=== PATIENT | female | born 1945 | race Caucasian/White ===

== ENCOUNTER → 2016-10-16 | Outpatient (CLI) | payer MEDICARE, OTHER | LOC: GMAM 16:53 | PROVIDERS: ATTEND Family Medicine | DX: R53.83 Other fatigue (principal); R30.0 Dysuria ==

== ENCOUNTER → 2016-10-20 | Outpatient (CLI) | payer MEDICARE, OTHER ==
--- NOTE | 2016-10-20 11:58 | CT ---
EXAM DESCRIPTION: CT CHEST WITHOUT IV CONTRAST CLINICAL HISTORY: PUKMONARY NODULE COMPARISON: August 24, 2014 TECHNIQUE: Chest CT was performed without IV contrast. FINDINGS: The thyroid and thoracic inlet are unremarkable. There are mural calcifications in the thoracic aorta and its major branches including the Coronary arteries. There is no thoracic aortic aneurysm. No hiatal hernia. Sensitivity for detection of adenopathy is limited by lack of IV contrast, but no mediastinal or hilar adenopathy is seen. There is no pleural or pericardial effusion. The central airways are clear. Emphysematous changes are noted. There is no airspace consolidation or lung mass. There is a tiny calcified granuloma in the right upper lobe, stable from August,. There is a 3 or 4 mm noncalcified nodule in the right lower lobe (series 3, image 30), also stable from August,. There is a predominately cystic 2.7 cm ovoid lesion in the left upper lobe with slightly irregular and thickened wall posteriorly. This is new or increased in size from the prior exam and could represent a cavitated lung nodule. There is a 4 mm noncalcified nodule in the left lung adjacent to the major fissure (series 3, image 28), stable from August,. A 1.8 cm left lower lobe nodule seen on the previous CT is not identified on the current exam. There is some linear density at its former location which may represent scarring. There is some radiopaque material in the collecting system in the superior pole of the left kidney which may represent nonobstructing calcification versus contrast from a recent CT. Visualized portions of the upper abdomen are otherwise unremarkable for noncontrast technique. There is a small sclerotic lesion in the L1 body which is stable from the prior study and likely related to a Schmorl's node. There is a T11 compression fracture, new from August, but of questionable acuity. No additional suspicious bone lesion is identified. IMPRESSION: Emphysema with a centrally cavitated 2.7 cm nodular lesion in the left upper lobe, new from August,. Differential considerations include centrally cavitated neoplasm versus atypical infection. This would be amenable to percutaneous biopsy. Alternatively, short-term followup CT in 2-3 months is recommended to document stability. Noncalcified nodules elsewhere in both lungs, all stable from August,. Interval resolution of a larger noncalcified left lower lobe nodule seen on the patient's previous CT. Electronically signed by: Duke Leonard DO 10/20/2016 11:56
== END ==
LOC: CT 09:38
PROVIDERS: ATTEND Family Medicine
DX: R91.1 Solitary pulmonary nodule (principal); J43.9 Emphysema, unspecified

== ENCOUNTER → 2016-12-15 | Outpatient (CLI) | payer MEDICARE, OTHER | END | disposition home or self-care (01) | LOC: BFHH 14:20 | PROVIDERS: ATTEND Family Medicine | DX: N39.0 Urinary tract infection, site not specified (principal) ==

== ENCOUNTER → 2017-01-13 | Outpatient (CLI) | payer MEDICARE, OTHER | END | disposition home or self-care (01) | LOC: GMAM 17:25 | PROVIDERS: ATTEND Family Medicine | DX: R41.82 Altered mental status, unspecified (principal) ==

== ENCOUNTER → 2017-01-16 | Outpatient (CLI) | payer MEDICARE, OTHER ==
--- NOTE | 2017-01-18 06:54 | MRI ---
Procedure: MR BRAIN WITHOUT IV CONTRAST Exam Date: 01/16/2017 12:00 AM CDT Ordering Provider: IZABEL TINSLEY Clinical Indication: MEMEORY LOSS Comparison: July 10, 2016 Technique: Multiplanar MRI of the brain was obtained without the administration of IV contrast. Findings: Punctate region of restricted diffusion seen in the junction of the precentral gyrus in the superior frontal gyrus of the left frontal lobe on diffusion image 21. Findings are compatible with a punctate acute cortical infarction. T2/FLAIR signal abnormality seen in the bihemispheric white matter, nonspecific yet most likely microvascular ischemic change. There is also global parenchymal volume loss. Ventricular size and configuration are normal. There is no midline shift or hydrocephalus. There is no parenchymal hemorrhage. The pituitary gland is normal in size. There are no pineal masses. There are normal intracranial vascular flow voids. The foramen magnum is normal. There is normal signal within the paranasal sinuses. The orbits are intact. IMPRESSION: 1. Millimetric superior left frontal lobe punctate acute infarction. Otherwise, nonacute MRI of the brain without the administration of IV contrast. 2. Microvascular ischemic change with global parenchymal volume loss. Electronically signed by: Mario Massey MD 01/18/2017 6:53 AM CDT
== END | disposition home or self-care (01) ==
LOC: MRI 10:48
PROVIDERS: ATTEND Family Medicine
DX: R41.82 Altered mental status, unspecified (principal)

== ENCOUNTER 2017-02-19 16:59 | Observation (INO) | payer MEDICARE, OTHER ==
[2017-02-19] MEDS ORDERED: SODIUM CHLORIDE 0.9% 1000ML 1,000 ML IVS ONE (17:31)
--- NOTE | 2017-02-19 17:32 | ED.PDOC ---
History of Present Illness - General Chief Complaint: General Stated Complaint: weakness,dehydration Time Seen by Provider: 02/19/17 17:17 Source: patient, family Exam Limitations: no limitations - History of Present Illness Initial Comments: PT WAS AT CLINIC TODAY. THE DR WAS UNABLE TO DRAW LABS D/T DEHYDRATION SO HE RECOMMENDED ER CARE - LABS, IVF. H/O FREQUENT UTI'S. PT IS A VERY POOR HISTORIAN. SON AT BEDSIDE, WHO IS RESIDENTIAL LEASING AGENT. HE SAID SINCE SHE HAD STROKE SEVERAL MONTHS AGO SHE HAS HAD WEAK LEGS AND REQUIRES USE OF WHEELCHAIR, NEEDS HIM TO FIX HER MEALS, HELP TO RR, BATHE HER. HE SAYS SHE HAS WORSENED OVER THE PAST WEEK - VERY LITTLE WATER AND FOOD INTAKE D/T LOW APPETITE AND THIRST, DYSURIA, DECR UOP. PT DOESN'T THINK SHE HAS VOIDED YET TODAY. POSSIBLE DEMENTIA. Improving Factors: nothing Worsening Factors: nothing Associated Symptoms: loss of appetite, weakness - GENERALIZE, NO NEW FOCAL WEAKNESS. Allergies/Adverse Reactions: Allergies Codeine Allergy (Unknown, Verified 12/01/13 11:23) FROM PCP Aspirin [From Percodan] Allergy (Verified 02/19/17 17:16) Oxycodone [From Percodan] Allergy (Verified 02/19/17 17:16) Home Medications: Ambulatory Orders Celecoxib [Celebrex] 200 mg PO DAILY 11/24/13 Cholecalciferol [Vitamin D3] 400 unit PO DAILY 11/24/13 Metformin HCl 500 mg PO DAILY 11/24/13 Albuterol Sulfate Nebs [Proventil Nebs] 2.5 mg INH QID PRN 02/19/17 Aripiprazole [Abilify] 10 mg PO DAILY 02/19/17 Atorvastatin Calcium [Lipitor] 10 mg PO DAILY 02/19/17 Ciprofloxacin [Cipro] 250 mg PO BID 02/19/17 Clopidogrel Bisulfate 75 mg PO DAILY 02/19/17 Clopidogrel Bisulfate [Plavix] 75 mg PO QD 02/19/17 Oxybutynin Chloride 5 mg PO TID 02/19/17 Review of Systems - Review of Systems Constitutional: States: malaise, weakness. Denies: chills, diaphoresis, fever EENTM: Denies: ear pain, nose pain, throat pain Respiratory: Denies: cough, short of breath, wheezing Cardiology: Denies: chest pain, edema, palpitations, syncope Gastrointestinal/Abdominal: Denies: abdominal pain, constipation, diarrhea, nausea, vomiting Genitourinary: States: dysuria, other - OLIGURIA Musculoskeletal: Denies: joint pain, muscle pain, neck pain Skin: States: no symptoms reported Neurological: Denies: headache, paresthesia, seizure Endocrine: States: no symptoms reported Hematologic/Lymphatic: States: no symptoms reported All other Systems: Reviewed and Negative Past Medical History (General) - Patient Medical History Hx Seizures: No Hx Stroke: Yes Hx Asthma: No Hx of COPD: Yes Hx Cardiac Disorders: No Hx Congestive Heart Failure: No Hx Pacemaker: No Hx Hypertension: Yes Hx Diabetes: Yes Hx MRSA: No Surgical History: Hysterectomy - Vaccination History Hx Influenza Vaccination: - unknown Hx Pneumococcal Vaccination: - unknown - Social History Hx Tobacco Use: Yes Hx Alcohol Use: No Hx Substance Use: No Hx Physical Abuse: No Hx Emotional Abuse: No Family Medical History - Family History Mother Family History: Unknown Physical Exam - Physical Exam General Appearance: Alert, Frail Eye Exam: bilateral normal Ears, Nose, Throat: hearing grossly normal, normal ENT inspection Neck: non-tender, full range of motion, supple Respiratory: chest non-tender, lungs clear Cardiovascular/Chest: normal peripheral pulses, regular rate, rhythm Peripheral Pulses: radial,right: 1+, radial,left: 1+ Gastrointestinal/Abdominal: normal bowel sounds, non tender, soft Back Exam: normal inspection, no CVA tenderness Extremity: normal range of motion, non-tender Neurologic: executive kitchen manager II-XII nml as tested, no motor/sensory deficits, alert, other - FLAT MOOD AND AFFECT. Skin Exam: normal color, warm/dry Departure - Departure Clinical Impression: Hyponatremia, Acute renal failure, Hypokalemia, Hypovolemia due to dehydration , Disuse atrophy of muscle, Oliguria, Weakness generalized Disposition: Admit Patient Referrals: Javier Armas MD [Primary Care Provider] - 1-2 Weeks Home Medications: Ambulatory Orders Celecoxib [Celebrex] 200 mg PO DAILY 11/24/13 Cholecalciferol [Vitamin D3] 400 unit PO DAILY 11/24/13 Metformin HCl 500 mg PO DAILY 11/24/13 Albuterol Sulfate Nebs [Proventil Nebs] 2.5 mg INH QID PRN 02/19/17 Aripiprazole [Abilify] 10 mg PO DAILY 02/19/17 Atorvastatin Calcium [Lipitor] 10 mg PO DAILY 02/19/17 Ciprofloxacin [Cipro] 250 mg PO BID 02/19/17 Clopidogrel Bisulfate 75 mg PO DAILY 02/19/17 Clopidogrel Bisulfate [Plavix] 75 mg PO QD 02/19/17 Oxybutynin Chloride 5 mg PO TID 02/19/17 Decision To Admit - Decistion To Admit Decision to Admit Reason: Medical Nature
[2017-02-19] MEDS ORDERED: IBUPROFEN 200 MG TAB ONE (21:06)
[2017-02-19] MEDS ORDERED: IBUPROFEN 200 MG TAB PO ONE (21:32)
--- NOTE | 2017-02-19 21:33 | HP ---
SUPERVISING PHYSICIAN: Cj Vences MD CHIEF COMPLAINT: Weakness and dehydration. HISTORY OF PRESENT ILLNESS: This is a 71-year-old female patient who was seen in her primary care physician's office today, Dr. Daniela Armas. She was extremely weak and dehydrated. They were unable to get labs on her at the clinic. She is a very poor historian, but according to the Emergency Room records, her son who is her needle board repairer said she had a stroke several months ago. She has been very weak since then and has required the use of a wheelchair as well as requiring help with bathing, eating, and her medications. Her is in the hospital at the present time. The Emergency Room did lab work on her and her CBC was basically within normal limits with the exception that her platelets were 533. Sodium 129, potassium 3.5, chloride 96, BUN 22, creatinine 1.38. Urine was basically within normal limits. She was given 1 liter of fluids in the Emergency Room. I was called for patient admission. Past medical history and review of systems are limited due to the patient's inability to answer questions. Most of the information was obtained via the EMR. PAST MEDICAL HISTORY: 1. Hyperlipidemia. 2. Hypertension. 3. Systolic heart murmur since age 29. 4. Cardiomegaly with ejection fraction 65% in 2004. 5. Chronic obstructive pulmonary disease. 6. Crohn's disease. 7. Irritable bowel syndrome. 8. Fibromyalgia. 9. Osteoarthritis. 10. Type 2 diabetes mellitus. 11. Hypothyroidism. PAST SURGICAL HISTORY: 1. Colon resection in August [address] Regalado with a subtotal colectomy for pain and adhesions. 2. Retinal detachment with repair. 3. Bladder suspension. 4. Hysterectomy with bilateral salpingo-oophorectomy. 5. T4, T5, T6 and S1 discectomy. 6. Thyroglossal duct cyst removal. 7. Ruptured ovarian cyst with repair. 8. Anterior/posterior repair and bladder neck suspension. 9. Dilatation and curettage times 3. 10. Right knee surgery. 11. Right thumb surgery. 12. Cataract surgery. OUTPATIENT MEDICATIONS: Per the EMR and awaiting verification. ALLERGIES: CODEINE, PERCODAN. SOCIAL HISTORY: She is . She has one child. She has a past history of cigarette smoking and quit in 2015. She has no history of ETOH or illicit drug use. REVIEW OF SYSTEMS: Limited due to the patient's inability to answer questions. PHYSICAL EXAMINATION: VITAL SIGNS: Afebrile. Heart rate 69. Blood pressure 144/90. Respiratory rate 20. O2 saturation 97%. GENERAL: This is a 71-year-old, female patient who is in no acute distress. HEENT: Normocephalic, atraumatic. Pupils are equal and reactive. She is edentulous. Oral mucous membranes are dry. NECK: Supple. RESPIRATORY: Essentially clear to auscultation bilaterally. CHEST: There is equal rise and fall of the chest with inspiration and expiration. CARDIOVASCULAR: Regular rate and rhythm. ABDOMEN: Soft, nondistended, nontender. Bowel sounds are positive. EXTREMITIES: No cyanosis, clubbing or edema. NEUROLOGIC: Awake and alert. She is oriented to person only. LABORATORY: Labs and films are as per the history of present illness. ASSESSMENT: 1. Severe dehydration. 2. Acute renal failure, most likely secondary to #1. 3. Dementia, as evidenced by recent ischemic stroke. Radiologic interpretation of MRI in January, shows a left frontal lobe punctate acute infarction and microvascular ischemic changes with global parenchymal volume loss. 4. Recent ischemic CVA. 5. Extreme weakness. 6. Electrolyte imbalance with hyponatremia, hypokalemia, and hypochloridemia. 7. Mild thrombocytosis. 8. Chronic obstructive pulmonary disease. 9. Type 2 diabetes mellitus. 10. Hypertension. 11. Crohn's disease. PLAN: We will place the patient in observation. She has received one liter of fluid in the Emergency Room. I will give her IV fluids here in the hospital. We will re-draw her labs in the morning. I have started her on sliding scale insulin coverage for diabetes. I started her on Protonix for ulcer prophylaxis and Lovenox for DVT prophylaxis. She is also on breathing treatments. She is on a full liquid diet for now and we will reevaluate that in the morning. Hopefully I can speak to her son and get a little bit more history of what has been going on with her. I may need a CT of the abdomen, but I will discuss that with her primary care physician, Dr. Armas, tomorrow. Otherwise, we will continue to monitor her closely and followup as needed. Dr. Vences is the collaborating physician and available for consultation. #[id number] [facility]
[2017-02-19] MEDS ORDERED: SODIUM CHLORIDE 0.9% (FLUSH) 10 ML SYG IV PRN (22:48)
[2017-02-19] MEDS ORDERED: ALBUTEROL SULFATE 2.5 MG/3 ML VIAL NEB PRN (22:51)
[2017-02-19] MEDS ORDERED: ONDANSETRON INJ 4 MG/2 ML VIAL IV PRN (22:51)
[2017-02-19] MEDS ORDERED: GLUCAGON INJ 1 MG VIAL SUBCU PRN (22:54)
[2017-02-19] MEDS ORDERED: DEXTROSE 50% 25 GM/50 ML SYG IV PRN (22:54)
[2017-02-19] MEDS ORDERED: ENOXAPARIN SODIUM 30 MG/0.3 ML SYG SUBCU SCH (23:00)
[2017-02-19] MEDS ORDERED: IV SET AND CAP CHANGE INJ INJ SCH (23:00)
[2017-02-20] MEDS: PANTOPRAZOLE SODIUM IV 40 MG VIAL IV SCH ×2 (00:16→22:35)
[2017-02-20] MEDS: KCL 20 MEQ/NS 1,000 ML IVS PRN ×3 (00:23→22:25)
[2017-02-20] MEDS: INSULIN LISPRO 100 UNITS/ML PEN SUBCU SCH ×4 (08:36→21:30)
[2017-02-20] MEDS: ALBUTEROL SULFATE 2.5 MG/3 ML VIAL NEB SCH ×4 (09:01→20:20)
[2017-02-20] MEDS ORDERED: POTASSIUM CHLORIDE 20 MEQ TAB PO ONE ×2 (12:38→14:49)
--- NOTE | 2017-02-20 14:09 | CT ---
EXAM DESCRIPTION: Abdoment/Pelvis w/o Contrast CLINICAL HISTORY: 71 years,Female,abd pain COMPARISON: None TECHNIQUE: Multiple axial helical tomographic images were obtained of the abdomen and pelvis with out IV or oral contrast and then reconstructed sagittal coronal plane. This exam was performed using radiation doses that are As Low As Reasonably Achievable (ALARA). FINDINGS: Motion artifact throughout the exam and metallic artifact obscuring some detail. The unenhanced liver is unremarkable. The spleen is unremarkable. The Pancreas is unremarkable. The adrenal glands are unremarkable. There are no stones seen in the urinary collection system. The kidneys are unremarkable. The gallbladder is collapsed or surgically absent. No free air free fluid masses or adenopathy. The included bowel demonstrates mild gaseous distention and fluid throughout the colon but otherwise unremarkable. The lung bases are unremarkable. The surrounding soft tissues are unremarkable. The bony elements age appropriate . Uterus and ovaries not seen presumed to be surgically absent and or atrophic. Moderate calcified disease of aorta and branch vessels. IMPRESSION: Mild gaseous distention and fluid-filled large bowel which can be seen in diarrhea otherwise unremarkable unenhanced CT of the abdomen and pelvis Electronically signed by: Scot Sosa MD 02/20/2017 2:06 PM CDT
--- NOTE | 2017-02-20 14:24 | PCM.CORE ---
Physician DVT/VTE - Prophylaxis Currently: Patient already on anticoagulation therapy - Nurse DVT Assessment & Total Each Risk Factor Represents 2 Points: Age 60-74, Confined to bed >72 hours Each Risk Factor Represents 1 Point: Medical PT at Bed Rest DVT Assessment Score: 5 - 5 or more Very High Risk Treatments: Early Ambulation *, Sequential Compression Device
[2017-02-20] MEDS ORDERED: MAGNESIUM SULFATE PREMIX 2GM 2 GM in PREMIX BAG 1 BAG IVPB ONE (14:49)
--- NOTE | 2017-02-20 15:57 | PN ---
DATE: 02/20/17 SUPERVISING PHYSICIAN: Javier Armas M.D. SUBJECTIVE: The patient is lying in her hospital bed. She is fairly confused today. She is very tearful and is unable to answer any questions. She does ask about her quite frequently who is presently in the hospital. OBJECTIVE: VITAL SIGNS: She is afebrile, heart rate 56, blood pressure 102/70, respiratory rate 20, O2 sat is 96%. RESPIRATORY: Essentially clear to auscultation. CARDIAC: Regular rate and rhythm. ABDOMEN: Soft, nondistended. Mildly tender. Bowel sounds are positive. EXTREMITIES: No cyanosis, clubbing or edema. NEUROLOGIC: She is awake. She is alert but disoriented. LABORATORY: WBC 5.7, hemoglobin 10.8, hematocrit 32. Sodium 136, potassium 3.4 , chloride 104, BUN 16, creatinine 1.02, serum osmolality 272.2, magnesium 1.6. ALT is 9. Blood sugars have run between [address] of the abdomen per radiology interpretation shows mild gaseous distention and fluid-filled large bowel which can be seen in diarrhea, otherwise unremarkable enhanced CT of the abdomen and pelvis. All other labs and films have been reviewed via the EMR. ASSESSMENT: 1. Severe dehydration currently on IV fluids. 2. Acute renal failure most likely secondary to number 1 but has improved. 3. Dementia as evidenced by recent ischemic stroke. Radiologic interpretation of MRI in January of 2017 shows a left frontal lobe punctate acute infarction and microvascular ischemic changes with global parenchymal volume loss. 4. Recent ischemic cerebrovascular accident. 5. Extreme weakness that continues. 6. Electrolyte imbalance with hypokalemia and hypomagnesemia. 7. Mild thrombocytosis that has improved. 8. Chronic obstructive pulmonary disease. 9. Type 2 diabetes mellitus. 10. Hypertension. 11. Crohn's disease. PLAN: We will continue present supportive care. I have given her some oral potassium and will also give her some magnesium. I have decreased her IV fluids. I will recheck her lab in the morning. After a lengthy discussion with her son-in-law who is her medical Power of Nurse Transplant, the plan is that she will be discharged to [facility] tomorrow for strengthening, conditioning and help with her care. The CT of her abdomen shows that there are no acute changes in her abdominal assessment given that she has had an extensive history of GI problems, but otherwise we will continue to monitor her closely and followup as needed. We will plan for discharge tomorrow. #[id number] [facility]
[2017-02-20] MEDS ORDERED: POTASSIUM CHLORIDE 20 MEQ TAB ONE ×2 (17:00→17:21)
[2017-02-20] MEDS ORDERED: MAGNESIUM SULFATE PREMIX 2GM 50 ML IVPB ONE (17:00)
[2017-02-20] MEDS: CLOPIDOGREL 75 MG TAB PO SCH (17:03)
[2017-02-20] MEDS: CELECOXIB 100 MG CAP PO SCH (17:03)
[2017-02-20] MEDS: OXYBUTYNIN CL 5 MG TAB PO SCH ×2 (17:03→21:23)
[2017-02-20] MEDS: ARIPiprazole 5 MG TAB PO SCH (17:03)
[2017-02-20] MEDS ORDERED: CIPROFLOXACIN 250 MG TAB ONE (19:47)
[2017-02-20] MEDS ORDERED: ENOXAPARIN SODIUM 40 MG/0.4 ML SYG SUBCU ONE (19:48)
[2017-02-20] MEDS ORDERED: ENOXAPARIN SODIUM 40 MG/0.4 ML SYG SUBCU SCH (21:00)
[2017-02-20] MEDS: CIPROFLOXACIN 250 MG TAB PO SCH (21:23)
[2017-02-21] MEDS: CELECOXIB 100 MG CAP PO SCH (05:37)
[2017-02-21] MEDS: INSULIN LISPRO 100 UNITS/ML PEN SUBCU SCH (07:10)
[2017-02-21] MEDS ORDERED: metFORMIN HCL 500 MG TAB PO SCH (07:30)
[2017-02-21] MEDS: CIPROFLOXACIN 250 MG TAB PO SCH (08:12)
[2017-02-21] MEDS: ARIPiprazole 5 MG TAB PO SCH (08:12)
[2017-02-21] MEDS: CLOPIDOGREL 75 MG TAB PO SCH (08:12)
[2017-02-21] MEDS: OXYBUTYNIN CL 5 MG TAB PO SCH (08:12)
[2017-02-21] MEDS: ALBUTEROL SULFATE 2.5 MG/3 ML VIAL NEB SCH (08:20)
[2017-02-21] MEDS ORDERED: ATORVASTATIN 10 MG TAB PO SCH (09:00)
[2017-02-21 10:58] VITALS: BP 109/68; TEMP 97; O2SAT 96
--- NOTE | 2017-02-21 16:48 | DS ---
SUPERVISING PHYSICIAN: Javier Armas M.D. DISCHARGE DIAGNOSIS: 1. Severe dehydration currently on IV fluids. 2. Acute renal failure most likely secondary to number 1 but has improved. 3. Dementia as evidenced by recent ischemic stroke. Radiologic interpretation of MRI in January of 2017 shows a left frontal lobe punctate acute infarction and microvascular ischemic changes with global parenchymal volume loss. 4. Recent ischemic cerebrovascular accident. 5. Extreme weakness that continues. 6. Electrolyte imbalance with hypokalemia and hypomagnesemia. 7. Mild thrombocytosis that has improved. 8. Chronic obstructive pulmonary disease. 9. Type 2 diabetes mellitus. 10. Hypertension. 11. Crohn's disease. HISTORY OF PRESENT ILLNESS: This is a 71 year-old female patient who was being seen in her primary care physician's office, Dr. Daniela Armas. She was extremely weak and dehydrated. They were unable to get labs at his clinic. She was sent to the Emergency Room to be evaluated. She had a stroke several months ago and has been weak and wheelchair bound since then. She has also required bathing, eating and administration of her medication. At the time that she was sent to the Emergency Room, her was also in the hospital. The Emergency Room did lab on her and her CBC was basically within normal limits with the exception that her platelets were 533. Sodium was 129, potassium 3.5, chloride 96, BUN 22, creatinine 1.38. She has no history of any renal insufficiency. Urine was basically within normal limits. She was given some fluids and she was placed in observation in the hospital. HOSPITAL COURSE: The patient responded well to fluids. She continued to be very confused and the family was worried about her safety after discharge, especially since her had been discharged from the hospital and they requested that she be evaluated by [facility] so she could be discharged to [facility] for strengthening, conditioning and general monitoring of her care. Hemoglobin on discharge was 9.5 and 27.9 which had a slight drop from her norm , but that may have been hemodiluted. Platelet count came down to 419 today. BUN is now 6 and creatinine is 0.71. Magnesium also normalized to 1.8. An abdominal CT was done on the day prior to discharge and per radiology interpretation showed a mild gaseous distention and fluid-filled large bowel which can be seen in diarrhea. Otherwise unremarkable unenhanced CT of the abdomen and pelvis. [facility] accepted her and she will be discharged to their facility at this time. DISCHARGE PLAN: The patient will be discharged to [facility]. She will need physical therapy at that facility. Discharge her on her routine medicines. She will see Dr. Armas on 02/24/17 at 3:15 PM. At that time, she will need a CBC to check her H&H. Her hemoglobin today was 9.4. She will also need a CMP as well as magnesium as her magnesium was 1.6 and she was given some magnesium supplementation. DISCHARGE MEDICATIONS: 1. Vitamin D3. 2. Celebrex. 3. Metformin. 4. Plavix. 5. Proventil. 6. Lipitor. 7. Abilify. 8. Oxybutynin. 9. Cipro. 10. Zofran. Dr. Armas is the collaborating physician and available for consultation. #[id number] [facility]
== END 2017-02-21 10:30 ==
LOC: ER 16:59 → MS 21:31
PROVIDERS: ADMIT Nurse Practitioner Acute Care; ATTEND Nurse Practitioner Acute Care
DX: E86.0 Dehydration (principal); N17.9 Acute kidney failure, unspecified; I69.359 Hemiplegia and hemiparesis following cerebral infarction affecting unspecified side; F03.90 Unspecified dementia, unspecified severity, without behavioral disturbance, psychotic disturbance, mood disturbance, and anxiety; R53.1 Weakness; E87.6 Hypokalemia; E83.42 Hypomagnesemia; D47.3 Essential (hemorrhagic) thrombocythemia; J44.9 Chronic obstructive pulmonary disease, unspecified; E11.9 Type 2 diabetes mellitus without complications; I10 Essential (primary) hypertension; K50.90 Crohn's disease, unspecified, without complications; E87.1 Hypo-osmolality and hyponatremia; E86.1 Hypovolemia; E78.5 Hyperlipidemia, unspecified; M79.7 Fibromyalgia; M19.90 Unspecified osteoarthritis, unspecified site; E03.9 Hypothyroidism, unspecified; Z79.84 Long term (current) use of oral hypoglycemic drugs; Z79.02 Long term (current) use of antithrombotics/antiplatelets; Z79.899 Other long term (current) drug therapy; Z88.6 Allergy status to analgesic agent; Z90.710 Acquired absence of both cervix and uterus; Z87.891 Personal history of nicotine dependence
CPT/HCPCS: 36415 ×3; 36416 ×4; 74176; 80053 ×3; 81001; 82948 ×5; 83735 ×2; 85025 ×3; 94640 ×5; 94760 ×3; 94762; 96365; 96366; 96367; 96372; 96375; 96376; 99284; G0378; J1650 ×2; J3475; J3480 ×3; J7030; J7611 ×5

== ENCOUNTER → 2017-02-24 | Outpatient (CLI) | payer MEDICARE, OTHER | LOC: GMAM 18:03 | PROVIDERS: ATTEND Family Medicine | DX: E86.0 Dehydration (principal); E83.42 Hypomagnesemia ==

== ENCOUNTER → 2017-03-19 | Outpatient (CLI) | payer MEDICARE, OTHER | LOC: GMAM 18:13 | PROVIDERS: ATTEND Family Medicine | DX: E83.42 Hypomagnesemia (principal) ==

== ENCOUNTER → 2017-07-01 | Outpatient (CLI) | payer MEDICARE, OTHER | LOC: GMAM 16:29 | PROVIDERS: ATTEND Family Medicine | DX: E55.9 Vitamin D deficiency, unspecified (principal); M62.81 Muscle weakness (generalized) ==

== ENCOUNTER → 2017-07-28 | Outpatient (CLI) | payer MEDICARE, OTHER | END | disposition home or self-care (01) | LOC: GMAM 17:24 | PROVIDERS: ATTEND Family Medicine | DX: D47.3 Essential (hemorrhagic) thrombocythemia (principal) ==

== ENCOUNTER → 2017-07-29 | Outpatient (CLI) | payer MEDICARE, OTHER | END | disposition home or self-care (01) | LOC: GMAM 17:20 | PROVIDERS: ATTEND Family Medicine | DX: D72.828 Other elevated white blood cell count (principal) ==

== ENCOUNTER 2017-08-11 15:45 | Inpatient (IN) | payer MEDICARE, OTHER ==
--- NOTE | 2017-08-11 16:17 | HP ---
SUPERVISING PHYSICIAN: Javier Armas MD CHIEF COMPLAINT: Dehydration, decreased mental status. HISTORY OF PRESENT ILLNESS: Ms. Verduzco is a 71-year-old, female patient who resides at [facility]. She is cared for by Dr. Daniela Armas. She was being seen in the clinic today for decreased mental status. It was noted that she was not her normal self, she was noncommunicative and appeared to be severely dehydrated. Family members note this apparently started over the weekend and had progressively worsened to the point that she was sent to the clinic for evaluation. Dr. Armas requested the patient be placed in observation for further treatment and evaluation with concerns for underlying urinary tract infection and severe dehydration. The patient was admitted in stable condition. PAST MEDICAL HISTORY: 1. Hypertension. 2. Diabetes mellitus, type 2. 3. Hypothyroidism. 4. Migraine headaches. 5. History of arthritis. 6. Fibromyalgia. 7. Crohn's disease. 8. Chronic obstructive pulmonary disease. 9. Parkinson's disease. 10. History of inferior vena cava thrombus in 2013. PAST SURGICAL HISTORY: 1. Colon resection in 2007. 2. Retinal detachment in 2008. 3. Bladder suspension. 4. Hysterectomy and bilateral salpingo-oophorectomy. 5. L4-L5, L5-S1 discectomy. 6. Thyroglossal duct cyst removal. 7. Ruptured ovarian cyst. 8. Anterior/posterior repair and bladder neck suspension in 1992. 9. Multiple dilatation and curettages in 1965, 1968. 10. Bartholin's cyst marsupialization. 11. Arthroplasty of the left thumb. 12. Left cataract surgery. 13. Right knee arthroscopy. HOME MEDICATIONS: 1. Nuplazid 34 mg daily. 2. Vitamin D3 400 units daily. 3. Tylenol 650 mg q.6h. p.r.n. 4. Oxybutynin 5 mg 3 times daily. 5. Zuplenz 4 mg q.6h. p.r.n. 6. Metformin 500 mg daily. 7. Magnesium Oxide 400 mg daily. 8. Plavix 75 mg daily. 9. Celebrex 200 mg daily. 10. Lipitor 10 mg daily. 11. Proventil nebulizers 2.5 mg q.i.d. as needed. 12. Ability 5 mg daily. ALLERGIES: CODEINE, ASPIRIN, OXYCODONE. FAMILY HISTORY: History of hypertension and lung cancer in her father. Mother of breast cancer and had type 2 diabetes and Alzheimer's. SOCIAL HISTORY: The patient resides at [facility]. She is and has one child. She does have a history of smoking in the past, but quit in 2016. She does not use alcohol or illicit drugs. REVIEW OF SYSTEMS: Unobtainable as the patient is noncommunicative. PHYSICAL EXAMINATION: VITAL SIGNS: Temperature 98.3. Saturation 95% on room air. Respirations 16. Pulse 88. Blood pressure 139/80. Weight 46.4 kg. GENERAL: The patient appears to be comfortable and in no acute distress. She is awake, but does not respond verbally. She will track and will follow some basic commands. HEENT: Tympanic membranes clear bilaterally. Oropharynx is pink. Mucous membranes dry. No lesions noted. She is edentulous. NECK: Supple, nontender with full range of motion. No jugular venous distention noted. CHEST: Lungs clear to auscultation bilaterally without any rhonchi, wheezing or rales, just diminished towards the bases. CARDIOVASCULAR: Regular rate and rhythm without any appreciable murmurs, gallops, or rubs. ABDOMEN: Soft, nontender. Positive bowel sounds. EXTREMITIES: There is no cyanosis, clubbing or edema. NEUROLOGIC: The patient is obtunded. She will open her eyes and track, but will not answer any questions and will follow basic motor commands. There are no notable localizing or focalizing neuro deficits other than she is notably weak. LABORATORY: White count shows leukocytosis of 15,200 with hemoglobin 11, hematocrit 33.1, platelet count 849,000. Differential does show an extreme left shift with increased bands at 58%. Chemistries show normal electrolytes with potassium 3.6, BUN elevated at 25, creatinine 0.52, glucose 154, calcium 8.8, lactic acid 1.2, magnesium low at 1.7. Liver functions were within normal limits. Urinalysis showed positive nitrites with microscopic showing 5 to 10 WBCs, 4+ bacteria, 1 to 3 epithelial cells with catheterized urine sample MICROBIOLOGY: Blood cultures pending. Urine cultures pending. RADIOLOGY: Noncontrast head CT per radiologic interpretation showed no acute intracranial abnormalities. Chest x-ray, single view, per radiologic interpretation showed no evidence of cardiopulmonary disease. ASSESSMENT: 1. Moderate dehydration with poor oral intake. 2. Urinary tract infection with cultures pending, likely contributing to the underlying acute mental status changes. 3. Infectious encephalopathy due to underlying urinary tract infection and exacerbated by dehydration. 4. Leukocytosis with increased bands secondary to underlying infectious process with a urinary tract infection with no other etiology available at time of admission. 5. Thrombocytosis, likely due to underlying dehydration. 6. History of hypertension. 7. History of chronic obstructive pulmonary disease in a previous smoker. 8. Type 2 diabetes mellitus. 9. Hypothyroidism. 10. History of fibromyalgia. 11. History of Crohn's disease. PLAN: The patient is placed in observation tonight and started on parenteral antibiotics to include Rocephin awaiting culture results to further target antibiotic therapy. We will start her on fluids to assist in rehydration with an initial bolus of saline. This will be continued with normal saline with 20 of potassium at 80 an hour. We will closely monitor I&Os. She is incontinent and we need accurate I&Os, therefore, Paul will be placed tonight for close monitoring of her output with anticipation of removal in the next 48 hours. We will anticipate length of stay to be at least one to two days until clinically stable and improved. Until then, we will continue to monitor the patient closely and treat appropriately. #[id number] [facility]
[2017-08-11] MEDS ORDERED: SODIUM CHLORIDE 0.9% (FLUSH) 10 ML SYG IV PRN (16:40)
[2017-08-11] MEDS ORDERED: IV SET AND CAP CHANGE INJ INJ SCH (17:00)
[2017-08-11] MEDS ORDERED: MAGNESIUM SULFATE PREMIX 2GM 2 GM in PREMIX BAG 1 BAG IVPB ONE (17:57)
[2017-08-11] MEDS ORDERED: SODIUM CHLORIDE 0.9% 500ML 500 ML IVS ONE (18:00)
--- NOTE | 2017-08-11 18:14 | CT ---
EXAM DESCRIPTION: Head CLINICAL HISTORY: Acute Mental Status Change COMPARISON: MRI January 16, 2017 TECHNIQUE: Contiguous axial images of the brain were obtained without the administration of intravenous contrast.This exam was performed according to our departmental dose-optimization program, which includes automated exposure control, adjustment of the mA and/or kV according to patient size and/or use of iterative reconstruction technique. FINDINGS: There is no acute intracranial hemorrhage or mass effect. Areas of low attenuation in the periventricular and subcortical white matter are nonspecific but suggestive of small vessel disease. Similar findings were noted in the prior exam. There is generalized atrophy. Ventricular system is within normal limits. There is adequate james-white matter differentiation. There is no skull fracture. The visualized paranasal sinuses and mastoid air cells are within normal limits. There is atherosclerosis. There are old lacunar infarcts within basal ganglia. IMPRESSION: No acute intracranial abnormalities. Electronically signed by: Parvez Sauer MD 08/11/2017 6:12 PM [facility]
--- NOTE | 2017-08-11 18:15 | RAD ---
EXAM DESCRIPTION: Chest,1 View CLINICAL HISTORY: cough COMPARISON: None FINDINGS: Cardiac silhouette is within normal limits. Aorta is tortuous. There is no focal parenchymal or pleural disease. Lucency inferior to the left hemidiaphragm could represent patient's stomach behind an air-filled colonic loop. If free air is suspected a decubitus image is recommended. There is no acute osseous process visualized. IMPRESSION: No evidence of acute cardiopulmonary disease. Lucency inferior to the left hemidiaphragm could represent patient's stomach behind an air-filled colonic loop. If free air is suspected a decubitus image is recommended. Electronically signed by: Parvez Sauer MD 08/11/2017 6:[address] [facility]
[2017-08-11] MEDS ORDERED: cefTRIAXone SODIUM 1 GM VIAL ONE (18:23)
[2017-08-11] MEDS ORDERED: SODIUM CHLORIDE 0.9% 50ML 50 ML ONE (18:24)
[2017-08-11] MEDS: cefTRIAXone SODIUM 1 GM in SODIUM CHL 0.9% 50ML MIN-BAG+ 50 ML IVPB SCH (19:05)
[2017-08-11] MEDS ORDERED: MAGNESIUM SULFATE PREMIX 2GM 50 ML IVPB ONE (19:44)
--- NOTE | 2017-08-11 20:59 | PCM.CORE ---
Physician DVT/VTE - Nurse DVT Assessment & Total Each Risk Factor Represents 3 Points: Medical PT with Hx of KS, CHF, Severe infection/sepsis Each Risk Factor Represents 2 Points: Age 60-74, Confined to bed >72 hours Each Risk Factor is 1 Point: Hx of Inflammatory Bowel Disease DVT Assessment Score: 8 - 5 or more Very High Risk Treatments: Early Ambulation *, Sequential Compression Device Pharmacological: Enoxaparin 40mg SQ Daily
[2017-08-11] MEDS ORDERED: ENOXAPARIN SODIUM 30 MG/0.3 ML SYG SUBCU ONE ×2 (21:55→22:03)
[2017-08-11] MEDS: KCL 20 MEQ/NS 1,000 ML IVS PRN (21:56)
[2017-08-11] MEDS: ENOXAPARIN SODIUM 40 MG/0.4 ML SYG SUBCU SCH (22:03)
[2017-08-11] MEDS: OXYBUTYNIN CL 5 MG TAB PO SCH (22:04)
[2017-08-11] MEDS: ARIPiprazole 5 MG TAB PO SCH (22:05)
[2017-08-12] MEDS: PIMAVANSERIN TARTRATE 34 MG PO SCH (08:54)
[2017-08-12] MEDS: CELECOXIB 100 MG CAP PO SCH (08:57)
[2017-08-12] MEDS: OXYBUTYNIN CL 5 MG TAB PO SCH ×3 (08:57→20:51)
[2017-08-12] MEDS: ATORVASTATIN 10 MG TAB PO SCH (08:58)
[2017-08-12] MEDS: MAGNESIUM OXIDE 400 MG TAB PO SCH (08:58)
[2017-08-12] MEDS ORDERED: metFORMIN HCL 500 MG TAB PO SCH (09:00)
[2017-08-12] MEDS ORDERED: CHOLECALCIFEROL 400 UNIT PO SCH (09:00)
[2017-08-12] MEDS: CLOPIDOGREL 75 MG TAB PO SCH (09:05)
[2017-08-12] MEDS: KCL 20 MEQ/NS 1,000 ML IVS PRN ×2 (10:02→21:50)
[2017-08-12] MEDS: ACETAMINOPHEN 325 MG TAB PO PRN ×2 (14:52→20:52)
--- NOTE | 2017-08-12 15:38 | PN ---
SUPERVISING PHYSICIAN: Javier Armas MD DATE: 08/12/17 SUBJECTIVE: The patient is lying in her hospital bed. Her family is at the bedside. She answers some simple yes/no questions appropriately, but otherwise does not verbalize very well. The family says the patient is better than yesterday, but she still has poor oral intake and is not eating much. OBJECTIVE: VITAL SIGNS: Afebrile. Heart rate 82. Blood pressure 140/66. Respiratory rate 16. O2 saturation 95% on 1 liter nasal cannula. HEENT: Oral mucous membranes are very dry. LUNGS: Essentially clear to auscultation bilaterally. CARDIAC: Regular rate and rhythm. ABDOMEN: Soft, nondistended. The patient grimaces with mild palpation in the epigastric region, but there is no rebound tenderness. Bowel sounds are positive. EXTREMITIES: No cyanosis, clubbing or edema. INTEGUMENT: Poor skin turgor. NEUROLOGIC: Awake, alert. She answers some very simple yes/no questions appropriately. LABORATORY: CBC and metabolic panel are pending. Preliminary urine culture shows gram negative rods. Preliminary blood cultures are negative to date. All other labs and films have been reviewed via the EMR. ASSESSMENT: 1. Moderate dehydration with poor oral intake. She also has a history of short bowel syndrome. 2. Urinary tract infection with initial cultures showing Escherichia coli and most likely contributing to the acute mental status changes. 3. Infectious encephalopathy due to underlying urinary tract infection and exacerbated by dehydration. 4. Leukocytosis with increased bands secondary to underlying infectious process. 5. Thrombocytosis, likely due to underlying dehydration. 6. History of hypertension. 7. History of chronic obstructive pulmonary disease in a previous smoker. 8. Type 2 diabetes mellitus. 9. Hypothyroidism. 10. History of fibromyalgia. 11. History of Crohn's disease with multiple abdominal surgeries resulting in short bowel syndrome. PLAN: We will continue present supportive care. Due to her multiple issues as well as diarrhea, we have changed her from an observation to inpatient status. I have ordered stool studies as well as routine lab for in the morning. She will continue on her IV fluids and will continue to push oral fluids as her condition improves. She has had diarrhea for several months and we may consider Viberzi if not contraindicated and after the results of her stool studies. I will continue to monitor her cultures and change antibiotics as needed. We will anticipate removal of her Paul in the next day or so. We will continue to monitor the patient closely and follow as needed. Dr. Armas is the collaborating physician and available for consultation. #[id number] [facility]
[2017-08-12] MEDS ORDERED: SODIUM CHL 0.9% 50ML MIN-BAG+ 50 ML IVPB ONE (15:54)
[2017-08-12] MEDS ORDERED: cefTRIAXone SODIUM 1 GM VIAL ONE (15:55)
[2017-08-12] MEDS: cefTRIAXone SODIUM 1 GM in SODIUM CHL 0.9% 50ML MIN-BAG+ 50 ML IVPB SCH (17:43)
[2017-08-12] MEDS ORDERED: ENOXAPARIN SODIUM 30 MG/0.3 ML SYG SUBCU ONE (19:22)
[2017-08-12] MEDS: ARIPiprazole 5 MG TAB PO SCH (20:51)
[2017-08-12] MEDS: ENOXAPARIN SODIUM 40 MG/0.4 ML SYG SUBCU SCH (20:52)
[2017-08-13] MEDS: metFORMIN HCL 500 MG TAB PO SCH (08:19)
[2017-08-13] MEDS: ACETAMINOPHEN 325 MG TAB PO PRN (08:19)
[2017-08-13] MEDS: CLOPIDOGREL 75 MG TAB PO SCH (09:07)
[2017-08-13] MEDS: MAGNESIUM OXIDE 400 MG TAB PO SCH (09:07)
[2017-08-13] MEDS: CHOLECALCIFEROL 2,000 IU TAB PO SCH (09:07)
[2017-08-13] MEDS: OXYBUTYNIN CL 5 MG TAB PO SCH ×3 (09:08→20:52)
[2017-08-13] MEDS: PIMAVANSERIN TARTRATE 34 MG PO SCH (09:08)
[2017-08-13] MEDS: ATORVASTATIN 10 MG TAB PO SCH (09:08)
[2017-08-13] MEDS: CELECOXIB 100 MG CAP PO SCH (09:08)
[2017-08-13] MEDS ORDERED: SODIUM CHL 0.9% 50ML MIN-BAG+ 50 ML IVPB ONE (16:56)
[2017-08-13] MEDS ORDERED: cefTRIAXone SODIUM 1 GM VIAL ONE (16:56)
[2017-08-13] MEDS ORDERED: MAGNESIUM SULFATE PREMIX 2GM 2 GM in PREMIX BAG 1 BAG IVPB ONE (17:30)
[2017-08-13] MEDS ORDERED: MAGNESIUM SULFATE PREMIX 2GM 50 ML IVPB ONE (18:06)
[2017-08-13] MEDS: cefTRIAXone SODIUM 1 GM in SODIUM CHL 0.9% 50ML MIN-BAG+ 50 ML IVPB SCH (18:18)
[2017-08-13] MEDS ORDERED: ENOXAPARIN SODIUM 30 MG/0.3 ML SYG SUBCU ONE (19:35)
--- NOTE | 2017-08-13 19:45 | PN ---
DATE: 08/13/17 SUPERVISING PHYSICIAN: Javier Armas M.D. SUBJECTIVE: The patient mentally is doing much better today. She seems to be more back to baseline status. She does look anemic on presentation but is conversive essentially with her . Her appetite is somewhat improved. She remains afebrile. She has had some diarrhea and stool cultures and workup have been sent off. OBJECTIVE: VITAL SIGNS: Temperature 97, pulse 78, blood pressure 112/72, respirations 18, satting 95% on room air. I's and O's show a positive balance of 1806 with 2032 in, 225 out. Weight is 49.6 kg. CHEST: Lungs are clear to auscultation. HEART: Regular rate and rhythm. ABDOMEN: Soft, non-tender. Positive bowel sounds. EXTREMITIES: No clubbing, cyanosis or edema. NEUROLOGIC : She is alert to herself and her , but not location and she is communicative today and appears to be improving. Per her , is close to her baseline mental status. LABORATORY: White count is down to 9,300, hemoglobin 8.8, hematocrit 26.4, platelet count 605,000. Differential shows improved with decrease in bands with neutrophils back to normal level at 73%. Chemistries show electrolytes are within normal limits with potassium 3.8, BUN 18, creatinine 0.4, glucose 87 , calcium 7.9 but albumin 2.0. Serum total protein was 5.0. Magnesium was once again low at 1.7. MICROBIOLOGY: Rotavirus was negative. Stool culture is pending. Stool leukocytes shows the presence of elevated fecal lactoferrin indicative of WBCs. Clostridium Difficile toxin A and B are negative for antigen and toxin A and B. Blood cultures remain negative at 24 hours. Final urine culture showed Escherichia coli that was sensitive to all but Augmentin, Ampicillin and Piperacillin. Stool occult blood was positive. O and P is pending. ASSESSMENT: 1. Moderate dehydration with poor oral intake with a history of short bowel syndrome. 2. Urinary tract infection with final culture results showing Escherichia coli likely contributing to the underlying mental status changes showing improvement with initiation of antibiotics. 3. Infectious encephalopathy due to underlying urinary tract infection and exacerbated by dehydration showing improvement after initiation of IV fluids and antibiotics. 4. Leukocytosis with increased bands secondary to underlying infectious process, improving. 5. Thrombocytosis likely due to underlying dehydration. 6. History of hypertension. 7. History of chronic obstructive pulmonary disease in a former smoker. 8. Type 2 diabetes mellitus. 9. Hypothyroidism. 10. History of fibromyalgia. 11. History of Crohn's disease with multiple abdominal surgeries resulting in short bowel syndrome with the patient having some diarrhea with stool workup pending. 12. Electrolyte imbalance with hypomagnesemia. 13. Normocytic normochromic anemia with initial occult blood showing to be positive. 14. Hypoalbuminemia likely secondary to poor oral intake and lack of adequate nutritional intake. PLAN: Will continue to treat underlying urinary tract infection with Rocephin. She has been saline locked and it taking good oral intake. Encouraged to utilize Boost for supplementation. Will plan to repeat an H&H today around 1700 and address accordingly, if it is dropping certainly we will transfuse as needed. Will continue to monitor stools closely. She has not had any obvious sources of bleeding other than just 1 occult blood that has been positive on stools. Will still encourage good nutritional input and hopefully be able to discharge tomorrow back to [facility]. Until then, continue to monitor and treat appropriately. #[id number] [facility]
[2017-08-13] MEDS: ENOXAPARIN SODIUM 40 MG/0.4 ML SYG SUBCU SCH (20:51)
[2017-08-13] MEDS ORDERED: ONDANSETRON INJ 4 MG/2 ML VIAL IV PRN (20:52)
[2017-08-13] MEDS: ARIPiprazole 5 MG TAB PO SCH (20:52)
[2017-08-13] MEDS: SODIUM CHLORIDE 0.9% (FLUSH) 10 ML SYG IV SCH (20:52)
[2017-08-14] MEDS: OXYBUTYNIN CL 5 MG TAB PO SCH (08:13)
[2017-08-14] MEDS: ATORVASTATIN 10 MG TAB PO SCH (08:13)
[2017-08-14] MEDS: metFORMIN HCL 500 MG TAB PO SCH (08:13)
[2017-08-14] MEDS: CHOLECALCIFEROL 2,000 IU TAB PO SCH (08:13)
[2017-08-14] MEDS: MAGNESIUM OXIDE 400 MG TAB PO SCH (08:13)
[2017-08-14] MEDS: CLOPIDOGREL 75 MG TAB PO SCH (08:14)
[2017-08-14] MEDS: CELECOXIB 100 MG CAP PO SCH (08:14)
[2017-08-14] MEDS: PIMAVANSERIN TARTRATE 34 MG PO SCH (08:56)
[2017-08-14] MEDS: SODIUM CHLORIDE 0.9% (FLUSH) 10 ML SYG IV SCH (09:17)
[2017-08-14 10:05] VITALS: BP 115/69; TEMP 98.1; O2SAT 96
[2017-08-14] MEDS ORDERED: MAGNESIUM SULFATE PREMIX 2GM 2 GM in PREMIX BAG 1 BAG IVPB ONE (11:34)
[2017-08-14] MEDS ORDERED: PNEUMOCOCCAL VACCINE 0.5 ML INJ IM ONE (12:37)
[2017-08-14] MEDS ORDERED: PNEUMOCOCCAL VACCINE 0.5 ML INJ ONE (12:38)
--- NOTE | 2017-08-14 13:52 | DS ---
SUPERVISING PHYSICIAN: Javier Armas MD DISCHARGE DIAGNOSIS: 1. Moderate dehydration with poor oral intake with a history of short bowel syndrome. 2. Urinary tract infection with final culture results showing Escherichia coli likely contributing to the underlying mental status changes showing improvement with initiation of antibiotics. 3. Infectious encephalopathy due to underlying urinary tract infection and exacerbated by dehydration showing improvement after initiation of IV fluids and antibiotics. 4. Leukocytosis with increased bands secondary to underlying infectious process, improving. 5. Thrombocytosis likely due to underlying dehydration. 6. History of hypertension. 7. History of chronic obstructive pulmonary disease in a former smoker. 8. Type 2 diabetes mellitus. 9. Hypothyroidism. 10. History of fibromyalgia. 11. History of Crohn's disease with multiple abdominal surgeries resulting in short bowel syndrome with the patient having some diarrhea with stool workup pending. 12. Electrolyte imbalance with hypomagnesemia. 13. Normocytic/normochromic anemia with initial occult blood showing to be positive. 14. Hypoalbuminemia likely secondary to poor oral intake and lack of adequate nutritional intake. HISTORY OF PRESENT ILLNESS: This is a 71-year-old, female patient who was seen in her primary care physician's office, Dr. Armas, due to decreased mental status. She resides at [facility]. It was noted that she was not her normal self, she was noncommunicative and appeared to be severely dehydrated. She has a significant history of short bowel syndrome and has required IV fluids multiple times in the past. Family members noted her change in mental status started over the prior weekend and had progressively worsened to the point that she was sent to the clinic for evaluation. Dr. Armas requested the patient be placed in observation for further treatment and evaluation with concerns for underlying urinary tract infection and severe dehydration. The patient was placed in observation in stable condition. HOSPITAL COURSE: She was started on parenteral antibiotics to include Rocephin and were awaiting urine cultures. Today, her urine cultures did come back positive for E. coli and sensitive to Bactrim as well as Rocephin. She was given IV fluids to assist with rehydration and she did have several issues with nausea and vomiting, but they have since subsided. She also has a poor appetite , but I believe this is her baseline and we have started giving her Ensure to assist with her caloric intake. Her labs have normalized. Her H&H is stable at 9.0 and 27.5. Her neutrophils have normalized as well as her electrolytes with the exception of her magnesium which was slightly low today at 1.7. She has received 2 grams of IV magnesium prior to discharge. Her vital signs have stabilized. She is actually speaking with her family members and communicating in her normal manner. She is to be discharged to [facility] today. DISCHARGE PLAN: The patient will be discharged to [facility] in stable condition. She is to resume her previous diet. She is to be evaluated by physical therapy for strengthening and conditioning. She is to increase her activity as tolerated. She has a followup appointment with Dr. Armas on at 2:30 in the afternoon. I have sent her to the intermediate on some Bactrim for 7 days as well as Zofran. I have also encouraged [facility] to push fluids every 2 hours while awake as well as giving her supplemental Glucerna to increase her caloric intake. She is to followup with Dr. Armas or return to the hospital for any further complications or problems. When she sees Dr. Armas, she is to have a CBC, CMP, and a magnesium at her office visit. DISCHARGE MEDICATIONS: 1. Acetaminophen. 2. Oxybutynin. 3. Zofran. 4. Nuplazid. 5. Metformin. 6. Magnesium oxide. 7. Plavix. 8. Celebrex. 9. Lipitor. 10. Albuterol sulfate. 11. Abilify. 12. Vitamin D. 13. Bactrim. Dr. Armas is the collaborating physician and available for consultation. #[id number] [facility]
== END 2017-08-14 12:50 | DRG 640 ==
LOC: MS 15:45 → OBSVTOIN 08-12 14:11
PROVIDERS: ADMIT Nurse Practitioner Family; ATTEND Nurse Practitioner Family
DX: E86.0 Dehydration (principal); G93.49 Other encephalopathy; N39.0 Urinary tract infection, site not specified; K50.90 Crohn's disease, unspecified, without complications; I10 Essential (primary) hypertension; E11.9 Type 2 diabetes mellitus without complications; E03.9 Hypothyroidism, unspecified; M19.90 Unspecified osteoarthritis, unspecified site; M79.7 Fibromyalgia; J44.9 Chronic obstructive pulmonary disease, unspecified; G20 Parkinson's disease; R32 Unspecified urinary incontinence; D47.3 Essential (hemorrhagic) thrombocythemia; B96.20 Unspecified Escherichia coli [E. coli] as the cause of diseases classified elsewhere; Z86.718 Personal history of other venous thrombosis and embolism; Z79.84 Long term (current) use of oral hypoglycemic drugs; Z79.02 Long term (current) use of antithrombotics/antiplatelets; Z79.1 Long term (current) use of non-steroidal anti-inflammatories (NSAID); Z88.5 Allergy status to narcotic agent; Z88.6 Allergy status to analgesic agent; Z79.899 Other long term (current) drug therapy; Z87.891 Personal history of nicotine dependence

== ENCOUNTER → 2017-08-19 | Outpatient (CLI) | payer MEDICARE, OTHER | END | disposition home or self-care (01) | LOC: GMAM 17:21 | PROVIDERS: ATTEND Family Medicine | DX: E83.42 Hypomagnesemia (principal) ==

== ENCOUNTER 2017-08-30 15:43 | Emergency (ER) | payer MEDICARE, OTHER ==
--- NOTE | 2017-08-30 16:10 | RAD ---
Procedure: XR CHEST 1 VIEW Exam Date: 08/30/2017 3:55 PM [employer] Ordering Provider: Helio Armas Clinical Indication: ams, hypoxia Comparison: None Findings: Lungs are clear. Heart size is within normal limits. No acute osseous abnormality. Impression: No acute pulmonary process. Electronically signed by: Lacey Darnell MD 08/30/2017 4:09 PM [employer]
[2017-08-30] MEDS ORDERED: SODIUM CHLORIDE 0.9% 1000ML 1,000 ML IVS ONE (16:44)
[2017-08-30] MEDS ORDERED: MULTIPLE VITAMIN INJ 10 ML, THIAMINE HCL INJ 100 MG in SODIUM CHLORIDE 0.9% 1000ML 1,00... IVS ONE (16:55)
[2017-08-30] MEDS ORDERED: THIAMINE HCL INJ 100 MG/ML VIAL ONE (18:30)
[2017-08-30] MEDS ORDERED: MULTIPLE VITAMIN 10 ML VIAL ONE (18:31)
--- NOTE | 2017-08-30 18:51 | CT ---
PROCEDURE: CTA Chest CLINICAL HISTORY: 71 years Female pe protocol, hypoxia, dist hx ivc clot COMPARISON: None. TECHNIQUE: Contiguous axial images were obtained through the chest during the infusion of IV contrast. Reformatted images obtained. MIP reformatted images obtained. This exam was performed according to our department optimization program which includes automated exposure control, adjustment of the mA and/or kv according to patient size and/or use of iterative reconstruction technique. FINDINGS: There are multiple bilateral saddle pulmonary emboli in major branches of the pulmonary arteries. There is also intraluminal filling defect in the origin of the left subclavian artery at its margin. Acuity of this finding is unclear. There is atelectasis versus scar within each lung base and each pulmonary apex. Underlying nodules are not excluded. No pneumothorax is seen. Heart size is normal. No pleural effusions. No lymphadenopathy. IMPRESSION: Bilateral moderate to large saddle pulmonary emboli. I discussed these findings with Dr. Armas at 1843 hours on 08/30/2017. Electronically signed by: Noel Vega 08/30/2017 6:50 PM [employer]
[2017-08-30] MEDS ORDERED: HEPARIN SODIUM (PORCINE) 5,000 U/ML VIAL IV ONE (19:01)
--- NOTE | 2017-08-30 19:03 | ED.PDOC ---
History of Present Illness - General Chief Complaint: General Stated Complaint: Lethargic, altered mental status, poor intake Time Seen by Provider: 08/30/17 15:45 Source: patient Exam Limitations: clinical condition - History of Present Illness Initial Comments: the patient is a 71-year-old female but appears much older than her stated age presenting from [facility] secondary to altered mental status. Apparently the patient is normally able to get up with some assistance area she also is able to converse at least minimally normally on a regular day. Today she was unable to get out of bed and is not talking at all. She does not appear to be in any distress but does appear to be pale and frail. Oxygen saturations upon arrival here range between 82 and 84% on room air. the patient was just admitted to the hospital several weeks ago for a urinary tract infection as well as some mild hyponatremia. The patient has also had a up for trending platelet count for at least the last 6 months and it does not appear that she has seen hematology at any point in timeand a source for this is not yet known. There is a questionable history of Crohn's disease with this patient. She has barely seen Dr. Rios in the past. 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 She does take Plavix for reason that I and family do not know for certain.the patient had a head CT earlier this month that showed chronic changes only. She received it due to altered mental status. Timing/Duration: 24 hours Severity: moderate Improving Factors: nothing Worsening Factors: nothing Allergies/Adverse Reactions: Allergies Codeine Allergy (Unknown, Verified 08/30/17 16:15) FROM PCP Aspirin [From Percodan] Allergy (Verified 08/30/17 16:15) Oxycodone [From Percodan] Allergy (Verified 08/30/17 16:15) Home Medications: Ambulatory Orders ARIPiprazole [Abilify] 5 mg PO BEDTIME 08/11/17 Acetaminophen [Tylenol] 650 mg PO Q6HR PRN 08/11/17 Albuterol Sulfate Nebs [Proventil Nebs] 2.5 mg INH QID PRN 08/11/17 Atorvastatin Calcium [Lipitor] 10 mg PO DAILY 08/11/17 Celecoxib 200 mg PO DAILY 08/11/17 Cholecalciferol [Vitamin D3] 400 unit PO DAILY 08/11/17 Clopidogrel 75 mg PO DAILY 08/11/17 Magnesium Oxide (mg Supplement [Magnesium Oxide] 400 mg PO DAILY 08/11/17 Metformin HCl 500 mg PO DAILY 08/11/17 Ondansetron [Zuplenz] 4 mg PO Q6HR PRN 08/11/17 Oxybutynin Chloride 5 mg PO TID 08/11/17 Pimavanserin Tartrate [Nuplazid] 34 mg PO DAILY 08/11/17 Ondansetron HCl [Zofran] 4 mg PO Q6H PRN #30 ml 08/14/17 Sulfa/Trimeth 800/160 (Ds) Tab [Bactrim DS] 1 tablet PO BID #14 tab 08/14/17 Review of Systems - Review of Systems Review of Systems: 08/30/17 19:04 limited by dementia and current delirium Constitutional: States: malaise, weakness - generalized Neurological: States: other - confusion obtunded Unable to Obtain Due To: condition, dementia Past Medical History (General) - Patient Medical History Hx Seizures: No Hx Stroke: Yes Hx Asthma: No Hx of COPD: Yes Hx Cardiac Disorders: No Hx Congestive Heart Failure: No Hx Pacemaker: No Hx Hypertension: Yes Hx Thyroid Disease: No - hypothyroidism Hx Diabetes: Yes Hx MRSA: No - Vaccination History Hx Influenza Vaccination: - unknown Hx Pneumococcal Vaccination: - unknown - Social History Hx Tobacco Use: No Hx Alcohol Use: No Hx Substance Use: No Hx Physical Abuse: No Hx Emotional Abuse: No - Activities of Daily Living Prison/Assisted Living (if applicable):: [facility] Family Medical History - Family History Mother Family History: Unknown Physical Exam - Physical Exam General Appearance: Alert, Comfortable, No apparent distress Eye Exam: bilateral normal Ears, Nose, Throat: other - hearing appears to be decreased bilaterally. She has no teeth. He does membranes are mildly dry. Neck: full range of motion, supple - he patient is very thin EJ was placed on the right Respiratory: lungs clear, normal breath sounds, no respiratory distress, no accessory muscle use Cardiovascular/Chest: normal peripheral pulses, no edema, tachycardia - sinus according to the EKG and telemetry Peripheral Pulses: radial,right: 2+, radial,left: 2+, dorsalis pedis,right: 2+, dorsalis pedis,left: 2+ Gastrointestinal/Abdominal: non tender, soft Rectal Exam: deferred Back Exam: no CVA tenderness, no vertebral tenderness Extremity: non-tender, no pedal edema, normal capillary refill, other - the patient is very thin and does have some muscle wasting Neurologic: checker loader II-XII nml as tested - as best can be tested, alert, other - the patient is able to move all extremities against gravity and seems to move them all to command. She is too weak to stand. Skin Exam: pallor Comments: Vital Signs - 24 hr 08/30/17 08/30/17 08/30/17 16:15 17:15 18:56 Temperature 99.7 F H Pulse Rate [ 112 H 107 H Left Radial] Respiratory 18 18 Rate Blood Pressure 124/80 119/80 [Left Arm] O2 Sat by Pulse 84 L 89 L Oximetry Progress - Progress Progress: 08/30/17 19:07 the patient is a 71-year-old female presenting to the emergency room from the senior care secondary to altered mental status. She has found to have bilateral pulmonary emboli which are probably also the source of the bump in troponin. The patient is on high flow oxygen to maintain oxygen saturation close to 90%. Blood pressures are remaining stable. She remains in a sinus tachycardia. ABG is consistent with pulse oximetry readings. Final read of the CT scans will be forwarded. Heparin drip is being started. Transferring to [facility] for evaluation for possible lytic therapy. - Results/Orders Results/Orders: Laboratory Tests 08/30/17 08/30/17 08/30/17 16:19 16:19 16:19 WBC 13.6 H RBC 3.50 L Hgb 10.4 L Hct 31.9 L MCV 91.0 MCH 29.7 MCHC 32.5 L RDW 22.1 H Plt Count 723 H MPV 6.7 L Absolute Neuts (auto) 10.50 H Absolute Lymphs (auto) 2.10 Absolute Monos (auto) 1.00 H Absolute Eos (auto) 0.00 Absolute Basos (auto) 0.00 Neutrophils % 77.0 Lymphocytes % 15.3 L Monocytes % 7.5 Eosinophils % 0.0 L Basophils % 0.2 PT 12.9 H INR 1.140 PTT (SP) 26.0 D-Dimer, Quantitative Sodium 142 Potassium 3.6 Chloride 111 Carbon Dioxide 24 Anion Gap 10.6 L BUN 32 H Creatinine 0.95 BUN/Creatinine Ratio 33.7 H Random Glucose 126 H Serum Osmolality 291.5 Lactic Acid Calcium 8.9 Magnesium 2.2 Total Bilirubin 0.7 AST 20 ALT 13 Alkaline Phosphatase 65 Creatine Kinase 68 CK-MB (CK-2) 2.2 CK-MB (CK-2) % Not Reportable Troponin I 0.36 H* B-Natriuretic Peptide 789.0 H* Serum Total Protein 6.9 Albumin 3.0 L Globulin 3.9 H Albumin/Globulin Ratio 0.8 L Urine Color Urine Appearance Urine pH Ur Specific [place] Urine Protein Urine Glucose (UA) Urine Ketones Urine Blood Urine Nitrite Urine Bilirubin Urine Urobilinogen Ur Leukocyte Esterase Urine RBC Urine WBC Ur Epithelial Cells Urine Bacteria 08/30/17 08/30/17 08/30/17 16:19 16:43 16:56 WBC RBC Hgb Hct MCV MCH MCHC RDW Plt Count MPV Absolute Neuts (auto) Absolute Lymphs (auto) Absolute Monos (auto) Absolute Eos (auto) Absolute Basos (auto) Neutrophils % Lymphocytes % Monocytes % Eosinophils % Basophils % PT INR PTT (SP) D-Dimer, Quantitative 2101 H* Sodium Potassium Chloride Carbon Dioxide Anion Gap BUN Creatinine BUN/Creatinine Ratio Random Glucose Serum Osmolality Lactic Acid 1.7 Calcium Magnesium Total Bilirubin AST ALT Alkaline Phosphatase Creatine Kinase CK-MB (CK-2) CK-MB (CK-2) % Troponin I B-Natriuretic Peptide Serum Total Protein Albumin Globulin Albumin/Globulin Ratio Urine Color Yellow Urine Appearance Clear Urine pH 6.5 Ur Specific [place] 1.020 Urine Protein 30 Urine Glucose (UA) Negative Urine Ketones Trace Urine Blood Negative Urine Nitrite Negative Urine Bilirubin Small H Urine Urobilinogen 2.0 H Ur Leukocyte Esterase Negative Urine RBC 0 Urine WBC 0 Ur Epithelial Cells 0 Urine Bacteria 0 chest x-ray appears benign. Final read on the CT scan of the chest is pending at this time and will be forwarded. Report from the radiologist shows bilateral saddle emboli. There is question of some left subclavian artery pathology. There appears to be a thrombus in the left lower extremity as noted on the CT scan of the abdomen. EKG shows a heart rate of 110 bpm there is a sinus tachycardia. She does have some scattered T-wave inversions primarily in the anterior and lateral leads. I see no evidence of any ST segment elevation. QT interval is normal. Departure - Departure Clinical Impression: Pulmonary emboli Qualifiers: Pulmonary embolism type: saddle Chronicity: acute Acute cor pulmonale presence : without acute cor pulmonale Qualified Code(s): I26.92 - Saddle embolus of pulmonary artery without acute cor pulmonale Deep venous thrombosis Qualifiers: DVT location: lower extremity Affected thrombotic vein of extremity: iliac Chronicity: acute Laterality: left Qualified Code(s): I82.422 - Acute embolism and thrombosis of left iliac vein Disposition: Transfer to Hospital Referrals: Javier Armas MD [Primary Care Provider] - 1-2 Weeks Home Medications: Ambulatory Orders ARIPiprazole [Abilify] 5 mg PO BEDTIME 08/11/17 Acetaminophen [Tylenol] 650 mg PO Q6HR PRN 08/11/17 Albuterol Sulfate Nebs [Proventil Nebs] 2.5 mg INH QID PRN 08/11/17 Atorvastatin Calcium [Lipitor] 10 mg PO DAILY 08/11/17 Celecoxib 200 mg PO DAILY 08/11/17 Cholecalciferol [Vitamin D3] 400 unit PO DAILY 08/11/17 Clopidogrel 75 mg PO DAILY 08/11/17 Magnesium Oxide (mg Supplement [Magnesium Oxide] 400 mg PO DAILY 08/11/17 Metformin HCl 500 mg PO DAILY 08/11/17 Ondansetron [Zuplenz] 4 mg PO Q6HR PRN 08/11/17 Oxybutynin Chloride 5 mg PO TID 08/11/17 Pimavanserin Tartrate [Nuplazid] 34 mg PO DAILY 08/11/17 Ondansetron HCl [Zofran] 4 mg PO Q6H PRN #30 ml 08/14/17 Sulfa/Trimeth 800/160 (Ds) Tab [Bactrim DS] 1 tablet PO BID #14 tab 08/14/17 Transfer to Outside Facility - Transfer Information Accepting Provider:: dr mauro Accepting Facility: [facility] Reason for Transfer: required specialist not available
[2017-08-30] MEDS ORDERED: HEPARIN PREMIX 500 ML ONE (19:04)
--- NOTE | 2017-08-30 19:10 | CT ---
EXAM DESCRIPTION: Abdomen/Pelvis w/Contrast CLINICAL HISTORY: ams, hypoxia, thrombocytosis COMPARISON: None Available TECHNIQUE: Contiguous axial images of the abdomen and pelvis were obtained after the administration of intravenous contrast followed by reconstruction images.This exam was performed according to our departmental dose-optimization program, which includes automated exposure control, adjustment of the mA and/or kV according to patient size and/or use of iterative reconstruction technique. FINDINGS: There is a large amount stool in the rectum. For detail above the diaphragm please see today's CT chest report. There is intraluminal thrombus throughout the visualized left femoral vein and left external iliac vein and extending up into the left common iliac vein, which demonstrates anomalous anatomy, draining into the left renal vein. No definite thrombus is seen in the left renal vein. The inferior most extent of thrombus is not included. Patient motion limits detail. There is no evidence of obstruction of either renal collecting system. There is mild to moderate dilatation of the colon with multiple air-fluid levels which could simply represent partial functional obstruction due to constipation.. A few loops of small bowel in the lower abdomen demonstrate mild wall thickening but this could be transient peristalsis. Mild inflammation is also possible. Ischemia or neoplasm are not excluded. Possibility of ischemia is more likely given the presence of large pulmonary emboli in this case. Clinical correlation will be helpful. Vascular detail is quite limited by patient motion but no definite acute intra-abdominal arterial abnormality is seen - however sensitivity is limited. The liver, spleen, pancreas and kidneys are within normal limits. There is no hydronephrosis. The gallbladder is poorly seen but grossly unremarkable. Adrenal glands are within normal limits. Aorta is normal in caliber and tapering. No significant free fluid. No free air. There is no stranding of the mesenteric fat. IMPRESSION: Large amount of deep venous thrombosis in the left common iliac vein and left lower extremity with inferior most extent not imaged. Ultrasound of the left lower extremity deep venous system would provide additional detail if desired. If that is performed, I recommend imaging the right lower extremity as well given large PEs in this patient. Constipation. Nonspecific thickening of the wall of portions of the small bowel as described. I discussed these findings with Dr. Armas at 1900 hours 08/30/2017. Electronically signed by: Noel Vega 08/30/2017 7:09 PM [employer]
[2017-08-30] MEDS ORDERED: HEPARIN PREMIX 25,000 UNITS in PREMIX BAG 1 BAG IVS SCH (19:15)
[2017-08-30 19:48] VITALS: BP 137/76; TEMP 98.6; O2SAT 88
== END 2017-08-30 19:43 | disposition short-term general hospital (02) ==
LOC: ER 15:43
DX: I26.92 Saddle embolus of pulmonary artery without acute cor pulmonale (principal); I82.422 Acute embolism and thrombosis of left iliac vein; I10 Essential (primary) hypertension; E11.9 Type 2 diabetes mellitus without complications; J44.9 Chronic obstructive pulmonary disease, unspecified; Z86.73 Personal history of transient ischemic attack (TIA), and cerebral infarction without residual deficits; E03.9 Hypothyroidism, unspecified; G20 Parkinson's disease; F02.80 Dementia in other diseases classified elsewhere, unspecified severity, without behavioral disturbance, psychotic disturbance, mood disturbance, and anxiety; Z88.6 Allergy status to analgesic agent; Z79.899 Other long term (current) drug therapy
CPT/HCPCS: 36415; 36600; 71010; 71275; 74177; 80053; 81001; 82550; 82553; 82803; 83605; 83735; 83880; 84484; 85025; 85379; 85610; 85730; 87040; 93005; J1644; J3411; J7030